=== PATIENT | female | born 1935 | race Caucasian/White ===

== ENCOUNTER 2018-03-22 08:22 | Emergency (ER) | END 2018-03-22 15:10 | disposition home or self-care (01) ==

== ENCOUNTER 2018-08-20 10:02 | Emergency (ER) | payer OTHER ==
[~2018-08-20] VITALS: Ht 149.9 cm; Wt 54.5 kg
[~2018-08-20 10:02] MED LIST: MECL12.574 PO
[2018-08-20 10:08] VITALS: Ht 149.9 cm; Wt 54.5 kg
--- NOTE | 2018-08-20 11:04 | ERD ---
ER Documentation Chief Complaint Chief Complaint HEADACHE HPI This is an 83-year-old female who presents to the emergency room for headache in the setting of elevated blood pressure. There is very limited information provided via EMS because of the care facility. It appears the patient's blood pressure was elevated in the 200 range and she had reported a headache. Patient has known dementia and appears to be at her baseline. Upon arrival the patient's blood pressure is improved and she states that she has no complaints. Using a hourly sign language interpreter the patient states that she does not have any symptoms, she does not know why she is in the emergency room. Remainder of HPI is somewhat limited given her underlying dementia. ROS All systems reviewed and are negative except as per history of present illness. Medications Home Meds Active Scripts Meclizine Hcl* (Antivert*) 12.5 Mg Tab, 25 MG PO Q6H PRN for DIZZINESS, #20 TAB Prov:EMMA ESCOTO DO 03/22/18 Allergies Allergies: Coded Allergies: No Known Allergy (Unverified , 03/22/18) PMhx/Soc History of Surgery: No (unk) Anesthesia Reaction: No Hx Neurological Disorder: No Hx Respiratory Disorders: No Hx Cardiac Disorders: Yes (HTN , high cholesterol ) Hx Psychiatric Problems: Yes (DEMENTIA, ALZHEIMERS) Hx Miscellaneous Medical Probl: Yes (DM) Hx Alcohol Use: No Hx Substance Use: No Hx Tobacco Use: No Smoking Status: Never smoker FmHx Family History: diabetes Physical Exam Vitals Vital Signs Date Temp Pulse Resp B/P (MAP) Pulse Ox O2 O2 Flow FiO2 Time Delivery Rate 08/20/18 78 18 166/56 98 Room Air 10:12 (92) 08/20/18 97.9 80 16 170/100 100 10:08 (123) Physical Exam General: Well developed, well nourished, no acute distress Head: Normocephalic, atraumatic. Eyes: Pupils equally reactive, EOM intact ENT: Moist mucous membranes Neck: Supple, no lymphadenopathy Respiratory: Lungs clear bilaterally, no distress Cardiovascular: RRR, no murmurs, rubs, or gallops Abdominal: Soft, non-tender, non-distended, no peritoneal signs : Deferred MSK: No edema, no unilateral swelling, 5/5 strength Neurologic: Alert and oriented to person appears to be at her baseline, moving all extremities, normal speech, no focal weakness, no cerebellar signs Skin: No rash Psych: Normal mood Results 24 hrs Laboratory Tests Test 08/20/18 10:23 Bedside Glucose 244 mg/dL Procedures/[facility] EKG, MONITORS, & DIAGNOSTIC IMAGING: CT brain: IMPRESSION: Atrophy. White matter disease compatible with chronic small vessel ischemia. Chronic lacunar infarct right thalamus. No intracranial hemorrhage, mass or evidence of acute transcortical infarct. MEDICAL DECISION MAKING: The patient presents with a report of elevated blood pressure though it is improved in the 160 range. The patient has dementia and cannot articulate any acute symptoms at this time. The patient's blood pressure is improved. Based on her age and her possible report of headache CT of the brain would be most appropriate. ER COURSE: * The patient CT is negative. Blood pressure remained stable. At this point the patient appears to be at her baseline. The patient has no evidence of acute emergent medical condition and can be safely discharged back to assisted living facility. No family available. CONSULTATION: None DISPOSITION PLAN: The patient does not have an identifiable emergent medical condition that warrants inpatient hospitalization at this time. The patient is deemed safe for discharge with outpatient follow-up. We discussed follow up with the patient's primary care doctor within 24 to 48 hours as needed. We also discussed return to the emergency room for worsening symptoms or worsening condition. Outpatient referral: None required Discharge Medications: None required Departure Diagnosis: Primary Impression: Headache Headache type: unspecified Headache chronicity pattern: acute headache Intractability: not intractable Qualified Codes: R51 - Headache Additional Impression: Hypertensive urgency Condition: Stable Patient Instructions: Self-Care for Headaches Referrals: [facility] YOU HAVE RECEIVED A MEDICAL SCREENING EXAM AND THE RESULTS INDICATE THAT YOU DO NOT HAVE A CONDITION THAT REQUIRES URGENT TREATMENT IN THE EMERGENCY DEPARTMENT. FURTHER EVALUATION AND TREATMENT OF YOUR CONDITION CAN WAIT UNTIL YOU ARE SEEN IN YOUR DOCTORS OFFICE WITHIN THE NEXT 1-2 DAYS. IT IS YOUR RESPONSIBILITY TO MAKE AN APPOINTMENT FOR FOLOW-UP CARE. IF YOU HAVE A PRIMARY DOCTOR --you should call your primary doctor and schedule an appointment IF YOU DO NOT HAVE A PRIMARY DOCTOR YOU CAN CALL OUR PHYSICIAN REFERRAL HOTLINE AT IF YOU CAN NOT AFFORD TO SEE A PHYSICIAN YOU CAN CHOSE FROM THE FOLLOWING [facility] [address] [facility]. [facility] [address] [facility] [address] [facility] [address] [facility] [address] [facility]. [facility]. [address] [facility]. [facility] YOU HAVE RECEIVED A MEDICAL SCREENING EXAM AND THE RESULTS INDICATE THAT YOU DO NOT HAVE A CONDITION THAT REQUIRES URGENT TREATMENT IN THE EMERGENCY DEPARTMENT. FURTHER EVALUATION AND TREATMENT OF YOUR CONDITION CAN WAIT UNTIL YOU ARE SEEN IN YOUR DOCTORS OFFICE WITHIN THE NEXT 1-2 DAYS. IT IS YOUR RESPONSIBILITY TO MAKE AN APPOINTMENT FOR FOLOW-UP CARE. IF YOU HAVE A PRIMARY DOCTOR --you should call your primary doctor and schedule and appointment IF YOU DO NOT HAVE A PRIMARY DOCTOR YOU CAN CALL OUR PHYSICIAN REFERRAL HOTLINE AT . IF YOU CAN NOT AFFORD TO SEE A PHYSICIAN YOU CAN CHOSE FROM THE FOLLOWING [facility] INSTITUTIONS: [facility] [address] [place] [address] [facility] [address] [place] [address] [facility] + [facility] [address] [place] [address] Additional Instructions: The patient CT brain is negative. The patient has improved blood pressure. WAN DYE MD Aug 20, 2018 11:04
[2018-08-20 12:20] VITALS: BP 147/87; PULSE 78; RESP 18
== END 2018-08-20 12:20 | disposition home or self-care (01) ==
LOC: E/R 10:02
DX: R51 Headache (principal); I16.0 Hypertensive urgency; I10 Essential (primary) hypertension; E11.9 Type 2 diabetes mellitus without complications; G30.9 Alzheimer's disease, unspecified
CPT/HCPCS: 70450; 82962